=== PATIENT | female | born 1995 | race African-American/Black ===

== ENCOUNTER 2020-04-06 22:20 | Outpatient (CLI) | payer MEDICAID ==
[2020-04-06 22:39] VITALS: BP 131/76
== END 2020-04-06 23:35 | disposition home or self-care (01) ==
LOC: TRG 22:20 → APU 22:32 → TRG 23:35
PROVIDERS: ATTEND Obstetrics & Gynecology
DX: O47.1 False labor at or after 37 completed weeks of gestation (principal); O26.853 Spotting complicating pregnancy, third trimester; Z3A.39 39 weeks gestation of pregnancy
CPT/HCPCS: 59025